=== PATIENT | male | born 1990 | race Caucasian/White ===

== ENCOUNTER 2018-03-13 17:54 | Emergency (ER) | payer SELFPAY ==
[2018-03-13] MEDS ORDERED: Sodium Chloride 0.9% 10 ML Syringe FLUSH PRN (18:04)
[2018-03-13] MEDS ORDERED: Sodium Chloride 0.9% 1,000 ML IV SCH (18:15)
--- NOTE | 2018-03-13 18:37 | CT ---
Head CT Technique: Multiple axial sections through the brain were obtained. Intravenous contrast was not utilized. Comparison: No previous intracranial imaging is available. Findings: Ventricles along with basal cisterns and sulci over the convexities are prominent for the patient's age likely relating to previous trauma. Prior craniotomy is noted. This craniotomy is noted on the left side. No abnormal parenchymal densities are seen. No evidence of acute intracranial hemorrhage. No midline shift or mass effect is seen. Bone window settings were reviewed which shows minimal mucosal thickening within the anterior right ethmoid sinus which is felt to be incidental. No acute skull finding is seen. Impression: 1. Atrophy most likely relating to previous trauma. 2. Previous craniotomy. 3. No acute intracranial abnormality is seen. 4. Minimal sinus findings which are felt to be incidental. Diagnostic code #2
--- NOTE | 2018-03-13 18:56 | EDM.PDOC ---
ED HPI GENERAL MEDICAL PROBLEM - General Chief Complaint: Neuro Symptoms/Deficits Stated Complaint: [facility] Time Seen by Provider: 03/13/18 17:57 Source of Information: Reports: Patient, EMS History Limitations: Reports: Altered Mental Status - History of Present Illness INITIAL COMMENTS - FREE TEXT/NARRATIVE: The patient was working all day out in the heat. He was trying to keep up with his fluids. He says he drank about 6 bottles of water. His crew went back to the shop and they were getting ready to go and they turned around and found the patient on the floor. He was not seizing but he was confused. He is not sure if he hit his head. He had a large epidural hematoma that was evacuated at [facility] in [place] September 24. He had seizures when he was in the hospital. He was discharged in September. He has been doing good and has not had any seizures since then. He has nausea and vomiting. He has no headache now. He denies chest pain or shortness of breath. He has no abdominal pain. He does have some generalized muscle cramping. Onset: Sudden, Gradual Duration: Minutes: Location: Reports: Generalized Quality: Reports: Other (Cramping) Severity: Moderate Improves with: Reports: None Worsens with: Reports: None Associated Symptoms: Reports: Nausea/Vomiting. Denies: Chest Pain, Cough, Fever /Chills, Headaches, Shortness of Breath Treatments YARD CLEANER: Reports: Other (see below) Other Treatments YARD CLEANER: fluids and zofran - Related Data Allergies Allergy/AdvReac Type Severity Reaction Status Date / Time No Known Allergies Allergy Verified 03/13/18 18:01 Home Meds: Home Meds levETIRAcetam [Keppra] 1,000 mg PO BID #60 tablet 03/13/18 [Rx] Past Medical History Cardiovascular History: Reports: Hypertension Social & Family History - Tobacco Use Smoking Status *Q: Never Smoker ED ROS GENERAL - Review of Systems Review Of Systems: See Below Constitutional: Reports: No Symptoms HEENT: Reports: No Symptoms Respiratory: Reports: No Symptoms Cardiovascular: Reports: No Symptoms Endocrine: Reports: No Symptoms GI/Abdominal: Reports: Nausea, Vomiting. Denies: Abdominal Pain, Diarrhea : Reports: No Symptoms Musculoskeletal: Reports: Muscle Pain (Cramping) ED EXAM, NEURO - Physical Exam Exam: See Below Exam Limited By: No Limitations General Appearance: Alert, No Apparent Distress Ears: Normal External Exam Nose: Normal Inspection Head Exam: Other (Old midline incision to the scalp) Neck: Normal Inspection, Supple, Non-Tender Respiratory/Chest: No Respiratory Distress, Lungs Clear, Normal Breath Sounds Cardiovascular: No Edema, No Murmur, Tachycardia GI/Abdominal: Soft, Non-Tender, No Organomegaly, No Mass Neurological: Alert, No Motor/Sensory Deficits, Oriented x 3 EKG INTERPRETATION EKG Date: 03/13/18 Time: 18:25 Rhythm: Other (Sinus tachycardia) Rate (Beats/Min): 104 [place]: Normal P-Wave: Present QRS: Normal ST-T: Normal QT: Normal Course - Vital Signs Last Recorded V/S: Last Vital Signs Temp 99.6 F 03/13/18 17:56 Pulse 124 H 03/13/18 17:56 Resp 16 03/13/18 17:56 BP 144/121 H 03/13/18 17:56 Pulse Ox - Orders/Labs/Meds Orders: Active Orders 24 hr Category Date Time Status Cardiac Monitoring [RC] . DIRECTED Care 03/13/18 18:04 Active EKG Documentation Completion [RC] STAT Care 03/13/18 18:05 Active Peripheral IV Care [RC] . DIRECTED Care 03/13/18 18:05 Active DRUG SCREEN, URINE [URCHEM] Stat Lab 03/13/18 18:04 Ordered Sodium Chloride 0.9% [Normal Saline] 1,000 ml Med 03/13/18 18:15 Active IV .BOLUS Sodium Chloride 0.9% [Normal Saline] 1,000 ml Med 03/13/18 19:26 Active IV ONETIME Sodium Chloride 0.9% [Saline Flush] Med 03/13/18 18:04 Active 10 ml FLUSH ASDIRECTED PRN Peripheral IV Insertion Adult [OM.PC] Stat Oth 03/13/18 18:04 Ordered Medication Orders Sodium Chloride (Normal Saline) 1,000 mls @ 1,000 mls/hr IV .BOLUS YEE Last Admin: 03/13/18 18:30 Dose: 1,000 mls/hr Sodium Chloride (Normal Saline) 1,000 mls @ 1,000 mls/hr IV ONETIME ONE Stop: 03/13/18 20:25 Sodium Chloride (Saline Flush) 10 ml FLUSH ASDIRECTED PRN PRN Reason: Keep Vein Open Last Admin: 03/13/18 18:30 Dose: 10 ml Labs: Laboratory Tests 03/13/18 03/13/18 Range/Units 18:34 18:34 WBC 8.35 (4.23-9.07) K/mm3 RBC 5.10 (4.63-6.08) M/mm3 Hgb 14.7 (13.7-17.5) gm/L Hct 42.1 (40.1-51.0) % MCV 82.5 (79.0-92.2) fl MCH 28.8 (25.7-32.2) pg MCHC 34.9 (32.2-35.5) g/dl RDW Std Deviation 45.7 H (35.1-43.9) fL Plt Count 56 L (163-337) K/mm3 MPV 11.5 (9.4-12.3) fl Neut % (Auto) 91.1 H (34.0-67.9) % Lymph % (Auto) 3.1 L (21.8-53.1) % [place] % (Auto) 5.5 (5.3-12.2) % Eos % (Auto) 0 L (0.8-7.0) Baso % (Auto) 0.1 (0.1-1.2) % Neut # (Auto) 7.60 H (1.78-5.38) K/mm3 Lymph # (Auto) 0.26 L (1.32-3.57) K/mm3 [place] # (Auto) 0.46 (0.30-0.82) K/mm3 Eos # (Auto) 0.00 L (0.04-0.54) K/mm3 Baso # (Auto) 0.01 (0.01-0.08) K/mm3 Manual Slide Review Abnormal smear Sodium 137 (136-145) mEq/L Potassium 4.2 (3.5-5.1) mEq/L Chloride 97 L (98-107) mEq/L Carbon Dioxide 25 (21-32) mEq/L Anion Gap 19.2 H (5-15) BUN 14 (7-18) mg/dL Creatinine 1.3 (0.7-1.3) mg/dL Est Cr Clr Drug Dosing 81.12 mL/min Estimated GFR (MDRD) > 60 (>60) mL/min BUN/Creatinine Ratio 10.8 L (14-18) Glucose 124 H (74-106) mg/dL Calcium 8.6 (8.5-10.1) mg/dL Total Bilirubin 1.7 H (0.2-1.0) mg/dL AST 211 H (15-37) U/L ALT 73 H (16-63) U/L Alkaline Phosphatase 97 (46-116) U/L Creatine Kinase 376 H (39-308) U/L Troponin I < 0.017 (0.00-0.056) ng/mL Total Protein 7.6 (6.4-8.2) g/dl Albumin 3.8 (3.4-5.0) g/dl Globulin 3.8 gm/dL Albumin/Globulin Ratio 1.0 (1-2) Lipase 217 (73-393) U/L Ethyl Alcohol 0.00 (0.00) gm% Meds: Medications Generic Name Dose Route Start Last Admin Trade Name Freq PRN Reason Stop Dose Admin Sodium Chloride 1,000 mls @ 1,000 mls/hr 03/13/18 18:15 03/13/18 18:30 Normal Saline IV 1,000 mls/hr .BOLUS YEE Administration Sodium Chloride 1,000 mls @ 1,000 mls/hr 03/13/18 19:26 Normal Saline IV 03/13/18 20:25 ONETIME ONE Sodium Chloride 10 ml 03/13/18 18:04 03/13/18 18:30 Saline Flush FLUSH 10 ml ASDIRECTED PRN Administration Keep Vein Open Discontinued Medications Generic Name Dose Route Start Last Admin Trade Name Freq PRN Reason Stop Dose Admin Levetiracetam 500 mg/ Sodium 105 mls @ 400 mls/hr 03/13/18 19:04 03/13/18 19: 26 Chloride IV 03/13/18 19:18 400 mls/hr ONETIME ONE Administration Sodium Chloride Confirm 03/13/18 19:22 Normal Saline Administered 03/13/18 19:23 Dose 1,000 mls @ as directed .ROUTE .STK-MED ONE - Re-Assessments/Exams Free Text/Narrative Re-Assessment/Exam: 03/13/18 18:58 I ordered an IV NS 1L bolus, labs, EKG and a CT of his head. His EKG shows a sinus tachycardia at a rate of 104 with no acute changes. The CT of his head shows atrophy most likely relating to previous trauma. Previous craniotomy. No acute intracranial abnormality is seen. Minimal sinus findings which are felt to be incidental. 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 That is not the story relayed to EMS. He ran out of his keppra a few weeks ago. 03/13/18 19:06 03/13/18 19:23 His WBC and Hgb are normal. His platelets are low at 56. His anion gap is elevated at 19.2. His glucose is elevated at 124. His total bili is elevated at 1.7. His AST is elevated at 211. His ALT is elevated at 73. His CK is elevated at 376. His troponin is negative. His lipase is negative. His ETOH is zero. I will give him a prescription for keppra and another liter of fluid here. Departure - Departure Time of Disposition: 19:35 Disposition: Home, Self-Care 01 Condition: Good Clinical Impression: Seizure, Dehydration, Thrombocytopenia Heat exhaustion Qualifiers: Encounter type: initial encounter Qualified Code(s): T67.5XXA - Heat exhaustion , unspecified, initial encounter - Discharge Information *PRESCRIPTION DRUG MONITORING PROGRAM REVIEWED*: Not Applicable *COPY OF PRESCRIPTION DRUG MONITORING REPORT IN PATIENT MIMA: Not Applicable Prescriptions: levETIRAcetam [Keppra] 1,000 mg PO BID #60 tablet Forms: ED Department Discharge Additional Instructions: Take the keppra 1,000mg 2 times per day. Drink plenty of fluids. Try to stay out of the head the next couple days. Try to get plenty of rest tonight. Please return if you are worse. Your platelets are low. Have them rechecked in a couple of weeks. - My Orders Last 24 Hours: My Active Orders 03/13/18 18:04 Cardiac Monitoring [RC] . DIRECTED DRUG SCREEN, URINE [URCHEM] Stat Sodium Chloride 0.9% [Saline Flush] 10 ml FLUSH ASDIRECTED PRN Peripheral IV Insertion Adult [OM.PC] Stat 03/13/18 18:05 EKG Documentation Completion [RC] STAT Peripheral IV Care [RC] . DIRECTED 03/13/18 18:15 Sodium Chloride 0.9% [Normal Saline] 1,000 ml IV .BOLUS 03/13/18 19:26 Sodium Chloride 0.9% [Normal Saline] 1,000 ml IV ONETIME - Assessment/Plan Last 24 Hours: My Active Orders 03/13/18 18:04 Cardiac Monitoring [RC] . DIRECTED DRUG SCREEN, URINE [URCHEM] Stat Sodium Chloride 0.9% [Saline Flush] 10 ml FLUSH ASDIRECTED PRN Peripheral IV Insertion Adult [OM.PC] Stat 03/13/18 18:05 EKG Documentation Completion [RC] STAT Peripheral IV Care [RC] . DIRECTED 03/13/18 18:15 Sodium Chloride 0.9% [Normal Saline] 1,000 ml IV .BOLUS 03/13/18 19:26 Sodium Chloride 0.9% [Normal Saline] 1,000 ml IV ONETIME
[2018-03-13] MEDS ORDERED: levETIRAcetam 500 MG in Sodium Chloride 0.9% 100 ML IV ONE (19:04)
[2018-03-13] MEDS ORDERED: Sodium Chloride 0.9% 1,000 ML ONE (19:22)
[2018-03-13] MEDS ORDERED: Sodium Chloride 0.9% 1,000 ML IV ONE (19:26)
== END 2018-03-13 20:21 | disposition home or self-care (01) ==
LOC: JD.ED 17:54
DX: T67.5XXA Heat exhaustion, unspecified, initial encounter (principal); E86.0 Dehydration; R56.9 Unspecified convulsions; D69.6 Thrombocytopenia, unspecified; Z79.899 Other long term (current) drug therapy
CPT/HCPCS: 36415; 70450; 80053; 82550; 83690; 84484; 85025; 93005; 96361; 96365; 99285; G0480; J1953; J7030; J7040; J7050; 93010; 99284-25